=== PATIENT | male | born 1955 | race Caucasian/White ===

== ENCOUNTER → 2024-07-05 | Outpatient (REF) | payer MEDICARE, OTHER ==
[~2024-07-05] MED LIST: ANDROGEL75 G1 TP; FOLIC ACID1 MG PO; GINSENG100 M1 PEG; HYDROCHLOROTHIA25 MG PO; HYDROXYCHLOROQ200 MG PO; IOPAMIDOL 370 MG/ML 100 ML INFUS..BTL INJ ONE; METOPROLOL SUCC25 MG PEG; NITROGLYCERIN 0.4 MG SUBL ONE; ONE DAILY1 EAC1 PO; SODIUM CHLORIDE 0.9% 100 ML ONE; VERAPAMIL ER180 MG PO; VERAPAMIL ER240 MG PO
[2024-07-05 08:46] LABS: CREATININE, SERUM 0.88 mg/dL (0.72-1.25)
== END ==
LOC: CT 07:18
PROVIDERS: ATTEND Internal Medicine Cardiovascular Disease
DX: I25.10 Atherosclerotic heart disease of native coronary artery without angina pectoris (principal); R94.39 Abnormal result of other cardiovascular function study
CPT/HCPCS: 36415; 75574; 82565; 84520; J7050; Q9967; 75580